=== PATIENT | female | born 1990 | race Caucasian/White ===

== ENCOUNTER 2021-03-01 20:01 | Emergency (ER) | payer BC, OTHER ==
[2021-03-01 20:06] VITALS: BP 117/79; PULSE 85; TEMP 98.2; BMI 28.3
== END 2021-03-01 20:30 | disposition home or self-care (01) ==
LOC: JERFT 20:01
DX: M79.10 Myalgia, unspecified site (principal); R53.82 Chronic fatigue, unspecified; Z11.52 Encounter for screening for COVID-19
CPT/HCPCS: 99283-25; C9803; U0003; U0005

== ENCOUNTER 2021-03-04 13:12 | Emergency (ER) | payer BC, OTHER | END 2021-03-04 14:54 | disposition home or self-care (01) | LOC: JVIRT 13:12 | DX: R09.81 Nasal congestion (principal); Z20.822 Contact with and (suspected) exposure to COVID-19 | CPT/HCPCS: 87804; 87807; C9803; Q3014-GT; U0003; U0005 ==

== ENCOUNTER 2021-03-06 11:24 | Emergency (ER) | payer BC, OTHER | END 2021-03-06 11:57 | disposition home or self-care (01) | LOC: JVIRT 11:24 | DX: Z11.52 Encounter for screening for COVID-19 (principal) | CPT/HCPCS: C9803; Q3014-GT; U0003; U0005 ==